=== PATIENT | male | born 1995 | race Caucasian/White ===

== ENCOUNTER 2022-05-07 07:52 | Emergency (ER) | payer BC ==
[2022-05-07] MEDS ORDERED: Sodium Chloride 0.9% 10 ML Syringe FLUSH PRN (08:12)
[2022-05-07] MEDS ORDERED: levETIRAcetam 1,000 MG in Sodium Chloride 0.9% 100 ML IV ONE ×2 (08:13→08:45)
[2022-05-07] MEDS ORDERED: LORazepam 2 MG/ML SDV IVPUSH ONE (08:18)
[2022-05-07] MEDS ORDERED: Ketorolac 30 MG/ML SDV IVPUSH ONE (09:06)
[2022-05-07] MEDS ORDERED: Acetaminophen 325 MG Tab PO ONE (10:58)
== END 2022-05-07 12:00 | disposition home or self-care (01) ==
LOC: JD.ED 07:52 → EDBD 07:52 → JD.ED 12:00
DX: R56.9 Unspecified convulsions (principal); Z79.899 Other long term (current) drug therapy
CPT/HCPCS: 36415; 70450; 72100; 80053; 83735; 85025; 96365; 96375; 99285; A9270; J1885; J1953; J2060; J3490

== ENCOUNTER 2022-10-14 07:46 | Emergency (ER) | payer BC ==
[2022-10-14] MEDS ORDERED: Albuterol/Ipratropium 3.0-0.5 MG/3 ML Neb Soln NEB ONE (08:38)
[2022-10-14 08:57] LABS: CORONAVIRUS COVID-19 NAA NEGATIVE (NEGATIVE); INFLUENZA A NAA NEGATIVE (NEGATIVE)
== END 2022-10-14 10:00 | disposition home or self-care (01) ==
LOC: JD.ED 07:46
DX: J06.9 Acute upper respiratory infection, unspecified (principal); B97.89 Other viral agents as the cause of diseases classified elsewhere; J98.01 Acute bronchospasm; Z20.822 Contact with and (suspected) exposure to COVID-19
CPT/HCPCS: 0240U; 71045; 94640; 99284; 99283; J7620-GY